=== PATIENT | female | born 1985 | race Caucasian/White ===

== ENCOUNTER 2023-07-10 19:10 | Emergency (ER) | payer OTHER ==
[2023-07-10] MEDS ORDERED: ONDANSETRON 4MG INJ IVP ONE (20:30)
[2023-07-10] MEDS ORDERED: KETOROLAC 30MG VIAL (30MG/ML) IVP ONE (20:30)
[2023-07-10] MEDS ORDERED: FAMOTIDINE 20MG VIAL IV ONE (20:30)
[2023-07-10] MEDS: 0.9%NACL 1000ML 1,000 ML IV SCH ×2 (20:39→21:58)
[2023-07-10 20:43] LABS: BASOPHILS # (AUTO) 0.02 K/uL (0.00-0.20); BASOPHILS % (AUTO) 0.4 % (0.0-5.0); EOSINOPHILS # (AUTO) 0.07 K/uL (0.00-0.70); EOSINOPHILS % (AUTO) 1.3 % (0.0-8.0); HEMATOCRIT 41.1 % (36-48); IMMATURE GRANULOCYTE ABSOLUTE 0.01 K/uL (0-1); LYMPHOCYTES # (AUTO) 2.8 K/uL (1.0-4.8); LYMPHOCYTES % (AUTO) 52.1 % (21.0-51.0); MEAN CORPUSCULAR HGB CONC 34.5 g/dL (32.0-36.0); MEAN CORPUSCULAR VOLUME 104.3 fL (79-99); MONOCYTES # (AUTO) 0.5 K/uL (0.1-1.0); MONOCYTES % (AUTO) 8.4 % (3.0-13.0); NEUTROPHILS # (AUTO) 2.1 K/uL (1.8-7.7); NEUTROPHILS % (AUTO) 37.6 % (40.0-77.0); PLATELET COUNT (AUTO) 153 K/uL (130-400); RED BLOOD CELL COUNT(AUTO) 3.94 MIL/uL (4.00-5.50); RED CELL DISTRIBUTION WIDTH 13.2 % (11.0-15.5); WHITE BLOOD COUNT (AUTO) 5.5 K/uL (4.8-10.8)
[2023-07-10 20:56] LABS: CREATININE 0.6 mg/dL (0.5-1.5); POTASSIUM 3.7 mmol/L (3.5-5.1)
[2023-07-10 21:07] LABS: ALBUMIN 3.3 g/dL (3.5-5.0); BILIRUBIN,TOTAL 0.2 mg/dL (0.2-1.0); TOTAL PROTEIN, SERUM 6.8 g/dL (6.0-8.3)
[2023-07-10] MEDS ORDERED: IOHEXOL 350 MG/ML 100ML INFUS..BTL IV ONE (22:09)
[2023-07-11] VITALS: BP 128/78; PULSE 87; RESP 18; O2SAT 95
[2023-07-11] MEDS ORDERED: FAMO-136 PO (00:25)
== END 2023-07-11 00:27 | disposition home or self-care (01) ==
LOC: EDH 19:10
DX: F10.129 Alcohol abuse with intoxication, unspecified (principal); K52.9 Noninfective gastroenteritis and colitis, unspecified; Y90.8 Blood alcohol level of 240 mg/100 ml or more
CPT/HCPCS: 99285; 74177; 96374; 96375; 80053; 84703; 83690; 85025; 36415; J3490; J7030; J2405; J1885; Q9967